=== PATIENT | female | born 1955 | race Caucasian/White ===

== ENCOUNTER 2018-04-14 15:42 | Emergency (ER) | payer OTHER ==
[~2018-04-14] VITALS: Ht 162.6 cm; Wt 63.1 kg
[2018-04-14 15:48] VITALS: BP 166/78
[2018-04-14] MEDS ORDERED: KETOROLAC 30 MG/1 ML IM ONE (16:30)
[2018-04-14] MEDS ORDERED: DIAZEPAM 5 MG TABLET PO ONE (16:30)
[2018-04-14] MEDS ORDERED: DIAZEPAM 5 MG TABLET ONE (16:39)
[2018-04-14] MEDS ORDERED: KETOROLAC 30 MG/1 ML ONE (16:40)
[2018-04-14] MEDS ORDERED: ONDANSETRON ODT 4 MG ONE (17:28)
[2018-04-14] MEDS ORDERED: HYDROmorphone 2 MG/ML, 1ML ONE (17:28)
[2018-04-14] MEDS ORDERED: HYDROmorphone 2 MG/ML, 1ML IM ONE (17:30)
[2018-04-14] MEDS ORDERED: ONDANSETRON ODT 4 MG PO ONE (17:30)
[2018-04-14 17:51] LABS: MICROSCOPIC NOT IND
[2018-04-14 18:04] LABS: CULTURE INDICATED? NO
== END 2018-04-14 18:39 | disposition home or self-care (01) ==
LOC: ED 18:05
DX: M51.16 Intervertebral disc disorders with radiculopathy, lumbar region (principal); I10 Essential (primary) hypertension
CPT/HCPCS: 72110; 81003; 96372; 99285; J1170; J1885; Q0162